=== PATIENT | male | born 1990 | race Caucasian/White ===

== ENCOUNTER 2017-10-29 11:20 | Observation (INO) | payer BC ==
[~2017-10-29] VITALS: Ht 185.4 cm; Wt 113.5 kg
[~2017-10-29 11:20] MED LIST: ANTIVERT25 MG PO; BACTRIM,SEPT1 TABLET PO; KEFLEX500 MG PO; PRILOSEC OTC20 MG PO; ULTRAM50 MG PO
[2017-10-29 12:20] LABS: HEMATOCRIT 43.2 % (38.0-50.0); HEMOGLOBIN 15.6 G/DL (12.5-16.6); MCH 32.7 PG (29.0-34.0); MCHC 36.1 G/DL (30.0-36.0); MCV 90.6 FL (86-99); PLATELET COUNT 260 K/uL (156-360); RBC DIS.WIDTH-CV 11.9 % (11.8-14.6); RBC DIS.WIDTH-SD 39.5 % (39-53); RED BLOOD COUNT 4.77 M/uL (4.00-5.50); WHITE BLOOD COUNT 14.3 K/uL (4.1-10.2)
[2017-10-29 12:29] LABS: ALBUMIN 4.7 g/dL (3.2-4.8)
[2017-10-29 12:30] LABS: CHLORIDE 98 mEq/L (99-109); POTASSIUM 3.3 mEq/L (3.7-5.4); SODIUM 138 mEq/L (136-147)
[2017-10-29 12:32] LABS: GLUCOSE 129 mg/dL (70-99); TOTAL PROTEIN 7.8 g/dL (6.4-8.3)
[2017-10-29 12:34] LABS: TOTAL BILIRUBIN 0.9 mg/dL (0.0-1.0)
[2017-10-29 12:35] LABS: ALKALINE PHOSPHATASE 65 IU/L (3-129)
[2017-10-29 12:36] LABS: CREATININE 0.9 mg/dL (0.6-1.3); GFR ESTIMATE (CALCULATED) > 59 mL/min/ (58.99-99999)
[2017-10-29 12:37] LABS: AST (GOT) 16 IU/L (2-34); DIRECT BILIRUBIN 0.3 mg/dL (0.0-0.3); UREA NITROGEN (BUN) 10 mg/dL (9-23)
[2017-10-29 12:38] LABS: ALT (GPT) 20 IU/L (3-49)
[2017-10-29 12:39] LABS: LIPASE 10 U/L (1.0-51.0)
[2017-10-29 14:28] LABS: APPEARANCE SL.HAZY ((CLEAR)); BILIRUBIN NEGATIVE; BLOOD NEGATIVE; COLOR YELLOW ((YELLOW)); GLUCOSE (STRIP) NEGATIVE; KETONES 80; LEUKOCYTES NEGATIVE; NITRITE NEGATIVE; PROTEIN (STRIP) NEGATIVE
[2017-10-29 14:42] LABS: BACTERIA RARE /HPF; EPITHELIAL CELLS RARE /HPF; MUCUS 3+ /LPF; RED BLOOD CELLS 0-5 /HPF (0-5); UCUL ADDED? NO; WHITE BLOOD CELLS 0-5 /HPF (0-5)
[2017-10-29 15:07] LABS: AMPHETAMINE NEGATIVE (500 ng/mL); BARBITURATES NEGATIVE (200 ng/mL); BENZODIAZEPINES NEGATIVE (150 ng/mL); BUPRENORPHINE NEGATIVE (10 ng/mL); COCAINE NEGATIVE (150 ng/mL); METHADONE NEGATIVE (200 ng/mL); METHAMPHETAMINE NEGATIVE (500 ng/mL); OPIATES (MORPHINE) NEGATIVE (100 ng/mL); OXYCODONE NEGATIVE (100 ng/mL); PHENCYCLIDINE NEGATIVE (25 ng/mL); PROPOXYPHENE NEGATIVE (300 ng/mL); THC CANNABINOIDS PRESUMPTIVE POSITIVE (50 ng/mL); TRICYCLIC ANTIDEPRESSANTS NEGATIVE (300 ng/mL)
[2017-10-29 16:18] LABS: TROP-I INTERPRETATION NEGATIVE; TROPONIN-I < 0.01 ng/mL (0.0-0.30)
[2017-10-29 16:39] LABS: INTER. NORMALIZED RATIO 1.2
[2017-10-29 16:42] LABS: PTT 28.8 SEC (25-37)
[2017-10-29 17:05] LABS: HEMATOCRIT 39.9 % (38.0-50.0); HEMOGLOBIN 14.4 G/DL (12.5-16.6); MCV 91.1 FL (86-99)
[2017-10-29 17:55] VITALS: BP 135/83
[2017-10-29 19:45] LABS: HEMATOCRIT 41.5 % (38.0-50.0); HEMOGLOBIN 14.6 G/DL (12.5-16.6); MCV 90.8 FL (86-99)
[2017-10-29 19:51] VITALS: BP 134/66
[2017-10-29 21:06] LABS: TROP-I INTERPRETATION NEGATIVE; TROPONIN-I < 0.01 ng/mL (0.0-0.30)
[2017-10-29 23:45] VITALS: BP 116/68
[2017-10-30 02:52] LABS: HEMATOCRIT 39.5 % (38.0-50.0); HEMOGLOBIN 14.1 G/DL (12.5-16.6); MCV 91.6 FL (86-99)
[2017-10-30 03:01] LABS: ALBUMIN 4.1 g/dL (3.2-4.8); CHLORIDE 105 mEq/L (99-109); POTASSIUM 3.6 mEq/L (3.7-5.4); SODIUM 141 mEq/L (136-147)
[2017-10-30 03:03] LABS: GLUCOSE 112 mg/dL (70-99)
[2017-10-30 03:05] LABS: TOTAL BILIRUBIN 0.9 mg/dL (0.0-1.0)
[2017-10-30 03:07] LABS: ALKALINE PHOSPHATASE 59 IU/L (3-129); CREATININE 0.9 mg/dL (0.6-1.3); GFR ESTIMATE (CALCULATED) > 59 mL/min/ (58.99-99999)
[2017-10-30 03:08] LABS: AST (GOT) 14 IU/L (2-34); TOTAL PROTEIN 6.4 g/dL (6.4-8.3); UREA NITROGEN (BUN) 10 mg/dL (9-23)
[2017-10-30 03:10] LABS: ALT (GPT) 18 IU/L (3-49)
[2017-10-30 03:13] LABS: TROP-I INTERPRETATION NEGATIVE; TROPONIN-I < 0.01 ng/mL (0.0-0.30)
[2017-10-30 03:52] VITALS: BP 129/62
[2017-10-30 06:47] VITALS: BP 115/31
[2017-10-30 10:25] LABS: HEMATOCRIT 39.6 % (38.0-50.0); HEMOGLOBIN 13.9 G/DL (12.5-16.6); MCV 92.5 FL (86-99)
[2017-10-30 11:55] VITALS: BP 134/68
[2017-10-30 16:38] VITALS: BP 120/73
[2017-10-30 19:14] VITALS: BP 132/73
== END 2017-10-30 19:38 | disposition home or self-care (01) ==
LOC: EME 11:20 → EDOF 16:25 → 4SOUTH 16:25 → ENRESERV 16:33 → 4SOUTH 17:52
PROVIDERS: Hospitalist; Physician Assistant Medical
PROC: 0DB68ZX Excision of Stomach, Via Natural or Artificial Opening Endoscopic, Diagnostic (ICD-10-PCS; principal; 2017-10-30)
DX: R10.13 Epigastric pain (principal); K92.0 Hematemesis; R11.2 Nausea with vomiting, unspecified; K21.9 Gastro-esophageal reflux disease without esophagitis; K29.70 Gastritis, unspecified, without bleeding; K44.9 Diaphragmatic hernia without obstruction or gangrene; F12.90 Cannabis use, unspecified, uncomplicated; Z83.79 Family history of other diseases of the digestive system
CPT/HCPCS: 74177; 80048; 80053; 80076; 81003; 83690; 84484; 84999; 85014; 85018; 85027; 85610; 85730; 86850; 86900; 86901; 88305; 88342 TC; 93005; 99281; 99284; C9113; G0378; J2405; J2765; J3480; J7030; S0028